=== PATIENT | male | born 1970 | race Caucasian/White ===

== ENCOUNTER 2016-03-28 01:54 | Day surgery (SDC) | payer OTHER ==
[~2016-03-28] VITALS: Ht 175.3 cm; Wt 86.3 kg
[2016-03-28] VITALS (11 sets, daily range): BP systolic 106–130; BP diastolic 67–97; PULSE 57–75; RESP 12–17; O2SAT 96–99
[~2016-03-28 01:54] MED LIST: ASPI81TA3 PO; EPIN0.3P2 IJ; LISI10TA PO; METO50TA3 PO; SIMV40TA5 PO
[2016-03-28 08:16] LABS: BASOPHILS % (AUTO) 0.4 % (0-3); EOSINOPHILS % (AUTO) 1.7 % (0-5); Mean Corpuscular Hemoglobin 28.9 pg (27.0-35.0); Mean Corpuscular Volume 81.6 fL (81-100); NEUTROPHILS % (AUTO) 62.8 % (40-74); Platelet Count 351 bil/L (150-400)
[2016-03-28] MEDS ORDERED: LISI-567 PO (08:30)
[2016-03-28] MEDS ORDERED: METO25TA6 PO (08:30)
[2016-03-28] MEDS ORDERED: SIMV80TA4 PO (08:30)
--- NOTE | 2016-03-28 08:32 | NUR ---
Admit [facility] Admitted to [facility] 3 about 0730. VSS. Denies pain. IVs started and labs sent. Procedure and recovery reviewed and verbalizes understanding. Awaiting systems testing laboratory technician.
[2016-03-28 08:37] LABS: INR 0.95 ratio
[2016-03-28] MEDS ORDERED: Heparin 1,000 Unit/mL 10 mL Inj ONE (09:33)
[2016-03-28] MEDS ORDERED: Nitroglycerin 50,000 mcg/250 mL D5W Premix IV ONE (09:33)
[2016-03-28] MEDS ORDERED: Heparin 1,000 Units/500 mL NS Premix IV ONE (09:33)
[2016-03-28] MEDS ORDERED: Heparin 5,000 Units/500 mL NS Premix IV ONE (09:33)
[2016-03-28] MEDS ORDERED: fentaNYL-PF 50 mCg/mL 2 mL Inj ONE (09:44)
[2016-03-28] MEDS ORDERED: Verapamil 2.5 mg/mL 2 mL Inj ONE (10:01)
[2016-03-28] MEDS ORDERED: 0.9% Sodium Chloride 1,000 ML IV PRN (10:23)
[2016-03-28] MEDS ORDERED: 0.9% Sodium Chloride 250 ML IV PRN (10:23)
[2016-03-28] MEDS ORDERED: HYDROcodone-APAP 5-325 mg Tablet PO PRN (10:25)
[2016-03-28] MEDS ORDERED: Ondansetron 2 mg/mL 2 mL Inj IVPUSH PRN (10:25)
[2016-03-28] MEDS ORDERED: Atropine 1 mg/10 mL (Code) Syringe IVPUSH PRN (10:25)
[2016-03-28] MEDS ORDERED: Influenza (Adult) Vaccine 0.5 mL Syringe IM ONE (11:15)
--- NOTE | 2016-03-28 11:16 | NUR ---
Received Received from clinical laboratory science professor about 1040. Denies pain. VSS. Tele SR. Right wrist without bleeding or hematoma. Pulse palp. Elevated on pillow. Tele SR/SB. Taking po well. IVF per orders. Monitor as ordered.
--- NOTE | 2016-03-28 11:26 | CS94 ---
[address] [address] DIAGNOSTIC CARDIAC CATHETERIZATION PATIENT: STEPHEN BARRETO : 1970 MR#: [id number] ADMIT: 03/28/2016 JOB ID: [id number] SERVICE DATE: 03/28/2016 PROCEDURE: 1. Retrograde left heart catheterization. 2. Selective left and right coronary angiography. 3. Left ventricular hemodynamics. CLINICAL HISTORY: The patient is a 45-year-old delightful male who has a known history of [id number] coronary artery disease. Last coronary angiography 2007. The patient has been experiencing symptoms of exertional chest discomfort. The patient had a stress test done which was negative for any ischemia, however the patient continued to have persistent chest pains with exertion. It was decided to proceed to coronary angiography for a more definitive assessment of his gtru-[id number]-nrvikutw coronary artery disease. CONSENT: The patient was explained the risks, benefits, and alternatives of the procedure. Informed signed consent was obtained and placed in the chart. DESCRIPTION OF PROCEDURE: The patient was brought to the cath laboratory and placed on the cath table. The right radial area was prepped and draped in the usual sterile manner. Using standard technique a 5-Malaysian arterial sheath was placed in the right radial artery. Subsequently, a mixture of verapamil and nitroglycerin was administered to prevent any spasms a standard 3.5 FL4 catheter was used to engage the left main coronary artery and multiple views of the left coronary artery were obtained in multiple projections. An FR4 catheter was used to engage the right coronary artery. Multiple views of the right coronary artery were obtained in multiple projections. Using a guidewire, the FR4 catheter was placed in the left ventricle and left ventricular pressures were obtained. No left ventricular cineangiography was performed given the known history of normal ejection fraction. Total contrast used 70 mL. Total fluoro time not available. FINDINGS: HEMODYNAMICS: The left ventricular end-diastolic pressure was 16 mmHg, the LV pressure was 130/8, and the aortic pressure was 129/84. There was no left ventricular to aortic gradient. CORONARY ANGIOGRAPHY: The left main coronary artery is short, almost double lumen. The left circumflex coronary artery is a large caliber vessel, free of any significant disease. The OM arising from the left circumflex does not demonstrate any significant disease. The ramus intermedius was noted. The superior limb of the ramus intermedius has mild diffuse luminal irregularities but free of any significant disease. The LAD gives off multiple septal experimental machining lab manager branches. The first diagonal is a moderate-sized vessel which has 30% to 40% ostial narrowing. The superior limb of the branch demonstrates diffuse luminal irregularities. The mid and distal LAD is free of any significant disease. The right coronary artery is a codominant vessel, free of any significant disease. Mild haziness noted in the distal inferior wall, probably consistent with a small area of AV malformations. IMPRESSION: 1. Mild coronary artery disease. 2. Symptoms of angina are most likely secondary to coronary microvascular dysfunction (syndrome X). 3. Recommended optimal medical management and antianginal therapies. CC: [facility]
[2016-03-28] MEDS ORDERED: ISOS40TA PO (12:28)
--- NOTE | 2016-03-28 14:17 | NUR ---
Recovery/Discharge VS and wrist remained stable. Pressure decreased slowly from 3393-6008 and TR band removed. Site stable. Up and ambulated without symptoms. Discharge instructions given, see sheets. Verbalizes understanding. Prescription given. Flu Vaccine information sheet given and Flu shot administered per pt. request and MD order. IVs discontinued intact. Discharged ambulatory with family and all belongings at 1400 in no distress.
--- NOTE | 2016-03-28 16:01 | NUR ---
Bleeding post discharge Received call from [facility] [place] [facility] that patient had spontaneously bled from wrist puncture at home, laid down, held pressure, and called 911. Stated bleeding stopped before they arrived and pt. now has a painful bruise at the site but that the bleeding had indeed stopped. Confirmed that if bleeding was stopped he should keep the wrist immobile and continue to monitor. Dr. So notified and he called the pt. at home.
== END 2016-03-28 23:59 | disposition home or self-care (01) ==
LOC: SOUO 01:54
PROVIDERS: ATTEND Internal Medicine Cardiovascular Disease
DX: I25.119 Atherosclerotic heart disease of native coronary artery with unspecified angina pectoris (principal); I10 Essential (primary) hypertension; E78.00 Pure hypercholesterolemia, unspecified; Z79.82 Long term (current) use of aspirin
CPT/HCPCS: 36415; 80048; 85025; 85610; 93458; C1769; C1894; J1644; J2250; Q2039; Q9967